=== PATIENT | female | born 1950 | race Caucasian/White ===

== ENCOUNTER → 2017-03-07 | Outpatient (CLI) | payer MEDICARE ==
[~2017-03-07] MED LIST: ALBU18HF INH; ASPI325T17 PO; ATOR80TA PO; EZET10TA18 PO; FLUT1DIS3 INH; FOLI-17 PO; METO25TA35 PO; MOEX7.5T2 PO; MONT10TA6 PO; NIAC1000 PO
== END | disposition home or self-care (01) ==
LOC: CFH 07:07
PROVIDERS: ATTEND Family Medicine
DX: K82.0 Obstruction of gallbladder (principal); K76.89 Other specified diseases of liver; J98.4 Other disorders of lung
CPT/HCPCS: 71020; 76700

== ENCOUNTER → 2017-07-20 | Outpatient (CLI) | payer MEDICARE | LOC: CFH 07:13 | PROVIDERS: ATTEND Family Medicine | DX: J18.9 Pneumonia, unspecified organism (principal) | CPT/HCPCS: 71046 ==

== ENCOUNTER → 2017-09-03 | Outpatient (CLI) | payer MEDICARE | LOC: CFH 13:11 | PROVIDERS: ATTEND Family Medicine | DX: J18.9 Pneumonia, unspecified organism (principal) | CPT/HCPCS: 71046 ==

== ENCOUNTER → 2017-09-24 | Outpatient (CLI) | payer MEDICARE | END | disposition home or self-care (01) | LOC: CFH 07:12 | PROVIDERS: ATTEND Family Medicine | DX: K44.9 Diaphragmatic hernia without obstruction or gangrene (principal); J84.10 Pulmonary fibrosis, unspecified | CPT/HCPCS: 71046 ==

== ENCOUNTER → 2018-08-06 | Outpatient (CLI) | payer MEDICARE ==
[~2018-08-06] MED LIST changes: +REGADENOSON 0.4 MG/5 ML SYRINGE ONE
== END | disposition home or self-care (01) ==
LOC: CFH 06:48
PROVIDERS: ATTEND Internal Medicine Cardiovascular Disease
DX: R01.1 Cardiac murmur, unspecified (principal); I10 Essential (primary) hypertension
CPT/HCPCS: 78452; 93017; 93306; A9502; J2785

== ENCOUNTER 2019-12-02 15:12 | Emergency (ER) | payer MEDICARE ==
[~2019-12-02] VITALS: Ht 165.1 cm; Wt 114.0 kg
[~2019-12-02 15:12] MED LIST changes: -EZET10TA18 PO; +EZET10TA70 PO; -REGADENOSON 0.4 MG/5 ML SYRINGE ONE
--- NOTE | 2019-12-02 15:35 | NUR ---
BREAK RN: PT WITH C/O SUDDEN ONSET OF DISCORDINATION AD VISUAL DISTURBANCES FOLLOWED BY ONSET OF GORE AND LIGHT FLASHES. SYMPTOMS RESSOLVED WITH THE EXCENPTION OF A DULL PAIN LEFT UPPER PARIETAL AREA (PT POINTS TO SPECIFIC SPOT) RATES 2/10 AND VERBALIZES "ONLY WHEN I THINK ABOUT IT" ER PA AT BEDSIDE, PT ASSESSMENT REVIEWED AND QUESTIONS REVIEWED. PT VSS, NAD NOTED, CALL LIGHT W/I REACH
[2019-12-02] MEDS ORDERED: OMEP-110 PO (15:41)
--- NOTE | 2019-12-02 16:13 | NUR ---
RECEIVED REPORT FROM JEIMY MEMBRENO, ASSUMING CARE OF PT. ORDERS RECEIVED.
--- NOTE | 2019-12-02 16:19 | NUR ---
LABS COLLECTED AND SENT.
[2019-12-02 16:29] LABS: BASOPHILS # (AUTO) 0.04 x10^3/uL (0-0.1); BASOPHILS % (AUTO) 0 % (0-1); EOSINOPHILS # (AUTO) 1.06 x10^3/uL (0-0.4); EOSINOPHILS % (AUTO) 12 % (1-7); LYMPHOCYTES % (AUTO) 15 % (22-44); MD NO; MEAN CORPUSCULAR HEMOGLOBIN 31.5 pg (27.0-34.8); MEAN CORPUSCULAR HGB CONC 32.8 g/dL (32.4-35.8); MEAN CORPUSCULAR VOLUME 96.2 fL (80-100); MEAN PLATELET VOLUME 7.7 fL (7.4-10.4); MONOCYTES # (AUTO) 0.93 x10^3/uL (0.2-0.8); MONOCYTES % (AUTO) 11 % (2-9); NEUTROPHILS # (AUTO) 5.58 x10^3/uL (1.8-6.8); NEUTROPHILS % (AUTO) 63 % (42-75); PLATELET COUNT 359 x10^3/uL (130-400); RED BLOOD COUNT 4.27 x10^6/uL (3.82-5.3); RED CELL DISTRIBUTION WIDTH 13.5 % (9.6-15.2)
[2019-12-02] MEDS ORDERED: SODIUM CHLORIDE FLUSH 10ML SYR IVF ONE (16:30)
--- NOTE | 2019-12-02 16:31 | NUR ---
TECH AT BEDSIDE FOR EKG, NOTED WHAT APPEARS TO BE PEAKED T WAVES. PA UPDATED. WILL CONTINUE TO MONITOR.
[2019-12-02 16:35] LABS: INTERNATIONAL NORMALIZED RATIO 0.95 (0.93-1.1); PROTHROMBIN TIME 10.1 Seconds (9.6-11.5)
[2019-12-02 16:36] LABS: ALANINE AMINOTRANSFERASE 27 U/L (12-78); ALBUMIN 3.6 g/dL (3.4-5.0); ANION GAP 6 mmol/L (5-15); CALCIUM 9.5 mg/dL (8.5-10.1); CHLORIDE 109 mmol/L (98-107); CREATININE 1.23 mg/dL (0.55-1.02)
[2019-12-02 16:38] LABS: ALKALINE PHOSPHATASE 81 U/L (45-117); BILIRUBIN,TOTAL 0.5 mg/dL (0.2-1.0); TOTAL PROTEIN 7.4 g/dL (6.4-8.2)
--- NOTE | 2019-12-02 16:39 | NUR ---
PT BEING TAKEN FOR CT. REQUESTED TO HOLD ON IV UNTIL NEEDED. WILL CONTINUE TO MONITOR
--- NOTE | 2019-12-02 17:08 | NUR ---
ALL RESULTS BACK AT THIS TIME, CHART UP FOR RECHECK
--- NOTE | 2019-12-02 17:33 | NUR ---
AWAITING MD RECHECK TO DECIDE ADMIT OR NOT
[2019-12-02 17:46] VITALS: BP 135/81
--- NOTE | 2019-12-02 17:46 | NUR ---
MD AT BEDSIDE TALKING WITH PT
== END 2019-12-02 18:04 | disposition home or self-care (01) ==
LOC: ED 17:09
DX: R51 Headache (principal); E78.5 Hyperlipidemia, unspecified; I10 Essential (primary) hypertension; J45.909 Unspecified asthma, uncomplicated; R94.31 Abnormal electrocardiogram [ECG] [EKG]; R41.0 Disorientation, unspecified
CPT/HCPCS: 36415; 70450; 80053; 85025; 85610; 85730; 93005; 99285

== ENCOUNTER 2019-12-19 07:14 | Outpatient (CLI) | payer MEDICARE ==
[~2019-12-19 07:14] MED LIST changes: +OMEP-110 PO
== END 2019-12-19 23:59 | disposition home or self-care (01) ==
LOC: CFH 07:14
PROVIDERS: ATTEND Nurse Practitioner Family
DX: Z12.31 Encounter for screening mammogram for malignant neoplasm of breast (principal); M85.88 Other specified disorders of bone density and structure, other site; N95.9 Unspecified menopausal and perimenopausal disorder
CPT/HCPCS: 77063; 77067; 77080

== ENCOUNTER 2019-12-22 06:32 | Outpatient (CLI) | payer MEDICARE | END 2019-12-22 23:59 | disposition home or self-care (01) | LOC: CVU 06:32 | PROVIDERS: ATTEND Internal Medicine Cardiovascular Disease | DX: I08.8 Other rheumatic multiple valve diseases (principal); G45.9 Transient cerebral ischemic attack, unspecified; I10 Essential (primary) hypertension; E78.5 Hyperlipidemia, unspecified; Z79.01 Long term (current) use of anticoagulants | CPT/HCPCS: 93306; 93880 ==